=== PATIENT | female | born 1995 | race Caucasian/White ===

== ENCOUNTER 2024-06-27 02:05 | Outpatient (CLI) | payer MEDICAID, SELFPAY ==
[2024-06-27 02:26] VITALS: RESP 14; TEMP 36.7
[2024-06-27 02:30] VITALS: BP 98/62; PULSE 85
[2024-06-27 02:41] VITALS: BMI 24.8
[2024-06-27 03:20] LABS: Absolute Lymphocyte Count 2.37 X10^3/uL (0.83-4.51); Absolute Neutrophil Count 7.2 X10^3/uL (2.0-7.7); Basophil# 0.06 X10^3/uL; Basophil% 0.6 % (0-1); Eosinophil# 0.11 X10^3/uL; Eosinophils% 1.1 % (0-5); Hematocrit 36.7 % (37-47); Hemoglobin 12.3 g/dL (12.0-15.0); Lymphocyte # 2.37 X10^3/ul (0.83-4.51); Lymphocyte % 22.7 % (19-41); Mean Corp Hgb Conc 33.5 g/dL (32-36); Mean Corpuscular Hgb 32.2 pg (27.0-32.0); Mean Corpuscular Volume 96.1 fL (81-99); Mean Platelet Vol. 8.9 fl (6.2-12.0); Monocyte# 0.61 X10^3/uL; Monocyte% 5.8 % (0-10); NRBC Flagged by Analyzer 0 % (0-5); Neutrophil # 7.23 X10^3/uL (2.7-7.7); Neutrophil % 69.1 % (47-70); Platelet Count 200 K/mm3 (150-450); RBC Distribution Width CV 12.8 % (11.6-14.6); RBC Distribution Width SD 44.4 fl (35.1-43.9); Red Blood Count 3.82 M/mm3 (4.2-5.4); White Blood Count 10.5 K/mm3 (4.4-11.0)
[2024-06-27 03:38] LABS: ALB/GLOB Ratio 0.9 RATIO (0.9-2.4); AST(SGOT) 9 U/L (15-37); Alanine Aminotransfer ALT/SGPT 13 U/L (13-56); Albumin, Serum 3.3 g/dL (3.2-5.0); Alkaline Phosphatase 56 U/L (45-117); Anion Gap 7 (5-15); BUN 10 mg/dL (7-18); BUN/Creat Ratio 18.2 RATIO (10-20); Chloride 107 mmol/L (98-107); Creatinine, Serum 0.55 mg/dL (0.55-1.02); EST Glomerular Filtration Rate 137 mL/min (>60); Est Glom Filt Rate - Afr Amer 166 mL/min (>60); Estimated Creatinine Clearance 133.36 ml/min; Globulin 3.6 g/dL (2.2-4.2); Glucose 96 mg/dL (74-106); Potassium 3.1 mmol/L (3.5-5.1); Protein, Total 6.9 g/dL (6.4-8.2); Sodium Level 137 mmol/L (136-145)
[2024-06-27] MEDS: Potassium Chloride Oral Tablet 20 MEQ PO (04:11)
[2024-06-27 04:39] LABS: Amphetamine Urine VISTA NEGATIVE (<1000 ng/mL); Barbiturate Urine VISTA NEGATIVE (< 200 ng/mL); Benzodiazepine Urine VISTA NEGATIVE (< 200 ng/mL); Cocaine Urine VISTA NEGATIVE (< 300 ng/mL); Ecstacy Urine VISTA NEGATIVE (< 500 ng/mL); Methadone Urine VISTA NEGATIVE (< 300 ng/mL); PCP Urine VISTA NEGATIVE (< 25 ng/mL); THC Urine VISTA NEGATIVE (< 50 ng/mL); Vista UDS pH Range 7
--- NOTE | 2024-07-01 16:24 | OB.TRI.NOTE ---
HPI - General General Date of Service: 06/27/24 Chief Complaint: Heart Palpitations, HPI Narrative RUBINA CHU, is a 29 F who presents to labor and delivery at approximately 27 to 28 weeks gestation with some heart palpitations. She has had this intermittently during the and they seem to get a bit worse today. She denies any Contractions, nausea and vomiting, or bleeding and has been feeling good movement from the baby. She sees an [employer]PER[employer]ENT in [facility] and was visiting here and thought she would come in for this issue this evening. PFSH PFS Home Medications ?Medication ?Instructions ?Recorded ?Last Taken ?Type vit no.95-ferrous 1 tab PO DAILY 06/27/24 Unknown History fumarate 28 mg-folic acid 800 mcg tablet () Allergy/AdvReac Type Severity Reaction Status Date / Time No Known Allergies Allergy Verified 06/27/24 02:43 Social History Smoking Status: Never smoker NST FHR Rate Baby A NST Reactive:: Yes and Appropriate for gestational age Assessment & Plan (1) Palpitations with regular cardiac rhythm: (2) : (3) Hypokalemia, inadequate intake: COMMENT: 28-week intrauterine with mild hypokalemia probably due from either inadequate intake or some nausea and vomiting during the . Potassium 3.1 and CBC reassuring for no infection or severe anemia. Patient denies any palpitations on labor delivery or contractions. heart tones are reassuring. Patient encouraged to increase potassium in her diet by eating foods such as bananas and see her [employer] SUPERINTENDENT next week to repeat her potassium levels. She was given a single dose of K-Dur prior to discharge. She is to call or return to her PATIENT ACCESS sooner with any return of palpitations.
== END 2024-06-27 05:00 | disposition home or self-care (01) ==
LOC: WPOUT 02:19 → WP 02:20
PROVIDERS: Visit Provider Obstetrics & Gynecology
DX: O99.891 Other specified diseases and conditions complicating pregnancy (principal); R00.2 Palpitations; O99.283 Endocrine, nutritional and metabolic diseases complicating pregnancy, third trimester; E87.6 Hypokalemia; Z3A.28 28 weeks gestation of pregnancy
CPT/HCPCS: 36415; 59025; 59050; 80053; 80307; 85025; 87086; 99221; G0378